=== PATIENT | female | born 1965 | race Two or more races ===

== ENCOUNTER 2017-07-18 21:08 | Observation (INO) | payer OTHER ==
[2017-07-18 21:14] VITALS: BMI 28.7
--- NOTE | 2017-07-18 21:24 | PDOC ---
History of Present Illness - General History Source: Patient Exam Limitations: No Limitations - General Chief Complaint: Chest Pain Stated Complaint: CHEST PAIN Time Seen by Provider: 07/18/17 21:15 - History of Present Illness Initial Comments: The patient is a 52 yr old female with a history hypothyroidism, hyperlipidemia , hypertension, CVA, DVT, fibroids, former smoker (quit after stroke) presents to the emergency department with chest pain since yesterday. Patient reports that her chest pain began last night and describes it as sharp, stabbing, intermittent (10x/minute). Today she state that she was driving when she felt pain in her chest, radiating to her left shoulder. She also reports feeling short of breath when the chest pain presents as well as feeling nauseous and hot. She states that she takes a Jerri aspirin daily. She had blood work done 1 week ago to test for MS. She denies diaphoresis, headache, or abdominal pain. She denies any fever, chills, focal weakness, numbness or tingling. FHx- Brother has MS. Father had heart disease and CVA. Social Hx: former smoker (cessation post stroke) ROS General: No fevers or chills, no weakness, no weight loss HEENT: No change in vision. No sore throat, No ear pain Cardiovascular: +chest pain, +shortness of breath secondary to pain Respiratory:No cough, or wheezing. Gastrointestinal: +nausea, no vomiting, diarrhea or constipation, No rectal bleeding Genitourinary: No dysuria, hematuria, or frequency Musculoskeletal: No joint or muscle pain or swelling Neurologic: No headache, vertigo, dizziness or loss of consciousness Psychiatric: No depression Skin: No rashes or easy bruising Endocrine: No increased thirst or abnormal weight change Allergic: No skin or latex allergy All other systems reviewed and normal PE General: Well-nourished well-developed individual, no acute distress HEENT: Throat: Normal, tonsils normal, no erythema or exudate Neck: Supple, no meningeal signs, no lymphadenopathy Eyes::Pupils equal reactive and round, extraocular motion intact Chest: Nontender to palpation Cardiac: S1-S2 normal, regular rate and rhythm, no murmurs rubs or gallops Respiratory: Lungs clear to auscultation bilateral Abdomen: Soft, nondistended, normal bowel sounds, nontender to palpation diffusely Extremities: Warm, dry, no cyanosis, clubbing, or edema Skin: No rashes Neuro: Alert and oriented x3, nonfocal exam, grossly intact, normal gait Psych: Normal mood and affect (Graciela Yoder) 07/18/17 21:31 A portion of this note was documented by scribe services under my direction. I have reviewed the details of the note, within reason, and agree with the documentation. The case summary and management plan written by me. Medical decision making: This is a 52-year-old female with multiple risk factors including hypertension, high cholesterol, CVA, history of smoking and family history of coronary artery disease who comes in complaining of substernal chest pain associated with radiation to her left axilla, shortness of breath, nausea times one day. Will obtain workup including CBC, comp, cardiac enzymes, d-dimer, EKG, chest x- ray We'll reassess and evaluate results of workup Differential diagnosis includes coronary artery disease, anterior chest wall pain, skeletal muscle type pain, PE 07/18/17 21:35 07/18/17 22:22 EKG shows normal sinus rhythm at a rate of [address]-T wave changes normal EKG. Chest x-ray shows no acute pathology Labs are normal including a non-measurable troponin D-dimer is still pending Patient will be admitted to an observation bed to rule her out as her heart scores for and she has multiple risk factors Patient is a patient of Dr. Vasquez, however I discussed with Dr. Vasquez who says he does not come to the [place] and the [facility] does his [place] admissions of his patient's. Signout given to the admitting hospitalist, who accepts the patient. Discussed plan with the patient family at bedside, Patient and family aware of the plan and agree. Patient is clinically unchanged and stable. (Janet Wallace I) Past History - Past Medical History Anemia: Yes CVA: Yes (CVA X 2 ()) COPD: No HTN: Yes Hypercholesterolemia: Yes Thyroid Disease: Yes (HYPO) - Surgical History Abdominal Surgery: Yes - Immunization History Immunization Up to Date: Yes - Suicide/Smoking/Psychosocial Hx Smoking History: Never smoked Have you smoked in the past 12 months: Yes Number of Cigarettes Smoked Daily: 20 'Breaking Loose' booklet given: 08/30/13 Hx Alcohol Use: No Drug/Substance Use Hx: No Substance Use Type: None - Past Medical History Allergies/Adverse Reactions: Allergies Allergy/AdvReac Type Severity Reaction Status Date / Time No Known Allergies Allergy Verified 03/03/15 23:22 Home Medications: Ambulatory Orders Amlodipine Besylate 5 mg PO DAILY 07/18/17 Review of Systems - Review of Systems Comments:: 07/18/17 21:40 see HPI (Graciela Yoder) *Physical Exam - Vital Signs Last Vital Signs Temp Pulse Resp BP Pulse Ox 98.5 F 85 16 139/83 96 07/18/17 23:38 07/19/17 01:24 07/19/17 01:24 07/19/17 01:24 07/19/17 01:24 - Physical Exam Comments: 07/18/17 21:40 see HPI (Graciela Yoder) Heart Score/ECG Review - History History: Moderately suspicious - Electrocardiogram EKG: Normal - Age Age: 45-65 - Risk Factors Risk Factors Heart Score: Yes Hx Hypercholesterolemia, Yes Hx Hypertension, Yes Smoking History, Yes Positive family hx of cardiac disease Based on the list above the patient has:: >/=3 risk factors or Hx atherosclerotic disease - Troponin Troponin: </= normal limit - Score Heart Score - Total: 4 ED Treatment Course - LABORATORY CBC & Chemistry Diagram: 07/18/17 21:35 07/18/17 21:35 - ADDITIONAL ORDERS Additional order review: Laboratory Results 07/19/17 07/18/17 07/18/17 00:55 21:50 21:35 D-Dimer 361 Sodium Potassium Chloride Carbon Dioxide Anion Gap BUN Creatinine Creat Clearance w eGFR Random Glucose Calcium Total Bilirubin AST ALT Alkaline Phosphatase Creatine Kinase Troponin I < 0.03 Total Protein Albumin Urine Color Yellow Urine Appearance Clear Urine pH 7.0 Ur Specific [place] 1.015 Urine Protein Negative Urine Glucose (UA) Negative Urine Ketones Negative Urine Blood 1+ H Urine Nitrite Negative Urine Bilirubin Negative Urine Urobilinogen 0.2 Ur Leukocyte Esterase Trace H Urine RBC 2-5 Urine WBC 2-5 Ur Epithelial Cells Few Urine Bacteria Few Urine HCG, Qual Negative 07/18/17 07/18/17 07/18/17 21:35 21:35 21:35 D-Dimer Sodium 138 Potassium 3.5 Chloride 105 Carbon Dioxide 26 Anion Gap 7 L BUN 12 Creatinine < 0.8 Creat Clearance w eGFR > 60 Random Glucose 115 H Calcium 9.4 Total Bilirubin 0.6 AST 20 ALT 25 Alkaline Phosphatase 104 H Creatine Kinase 137 Troponin I < 0.03 Total Protein 6.8 Albumin 3.8 Urine Color Urine Appearance Urine pH Ur Specific [place] Urine Protein Urine Glucose (UA) Urine Ketones Urine Blood Urine Nitrite Urine Bilirubin Urine Urobilinogen Ur Leukocyte Esterase Urine RBC Urine WBC Ur Epithelial Cells Urine Bacteria Urine HCG, Qual 07/18/17 21:35 RBC 5.04 MCV 82.1 MCHC 33.7 RDW 13.8 MPV 8.5 Neutrophils % 57.7 Lymphocytes % 30.6 Monocytes % 8.2 Eosinophils % 2.5 Basophils % 1.0 - RADIOLOGY Radiology Studies Ordered: Category Date Time Status CHEST X-RAY PORTABLE* [RAD] Stat Radiology 07/18/17 21:34 Taken *DC/Admit/Observation/Transfer - Discharge Dispostion Admit: Yes Diagnosis at time of Disposition: Chest pain Qualifiers: Chest pain type: unspecified Qualified Code(s): R07.9 - Chest pain, unspecified - Discharge Dispostion Condition at time of disposition: Stable Decision to Admit order Date/Time: Decision to Admit Order Category Date Time Status Decision to Admit to Hospital Routine Admission 07/18/17 22:28 Active - Attestations Scribe Attestion: 07/18/17 21:40 Documentation prepared by Graciela Yoder, acting as medical billing specialist for Janet Wallace MD. (Graciela Yoder)
[2017-07-18 21:50] LABS: EOS % 2.5 % (0-4.5); HEMATOCRIT 41.3 % (32.4-45.2); HEMOGLOBIN 13.9 GM/dl (10.7-15.3); LYMPH % 30.6 % (8-40); MCH 27.7 pg (25.7-33.7); MCHC 33.7 g/dl (32.0-36.0); MEAN CELL VOLUME 82.1 fl (80-96); MEAN PLT VOLUME 8.5 fl (7.5-11.1); MONO % 8.2 % (3.8-10.2); NEUT % 57.7 % (42.8-82.8); PLATELET COUNT 319 K/MM3 (134-434); RBC 5.04 M/mm3 (3.60-5.2); RDW 13.8 % (11.6-15.6); WHITE BLOOD COUNT 9.9 K/mm3 (4.0-10.8)
[2017-07-18 22:00] LABS: URINE APPEARANCE Clear; URINE BILIRUBIN Negative (NEGATIVE); URINE GLUCOSE (UA) Negative (NEGATIVE); URINE KETONE Negative (NEGATIVE); URINE NITRITE Negative (NEGATIVE); URINE PROTEIN Negative (NEGATIVE); URINE UROBILINOGEN 0.2 (0.2-1.0)
[2017-07-18 22:02] LABS: HCG,QUALITATIVE URINE NEGATIVE; URINE BLOOD 1+ (NEGATIVE); URINE COLOR YELLOW; URINE LEUK ESTERASE TRACE (NEGATIVE)
[2017-07-18 22:06] LABS: ALBUMIN 3.8 g/dl (3.5-5.0); ALK PHOS 104 U/L (32-92); ANION GAP 7 (8-16); BILIRUBIN,TOTAL 0.6 mg/dl (0.2-1.0); BLOOD UREA NITROGEN 12 mg/dl (7-18); CALCIUM 9.4 mg/dl (8.4-10.2); CHLORIDE 105 mmol/L (98-107); CO2 26 mmol/L (22-28); GLUCOSE,RANDOM 115 mg/dl (74-106); POTASSIUM 3.5 mmol/L (3.5-5.1); SGOT/AST 20 U/L (10-42); SGPT/ALT 25 U/L (10-40); SODIUM 138 mmol/L (136-145); TOT PROT 6.8 g/dl (6.4-8.3)
[2017-07-18 22:07] LABS: EPI CELLS FEW /HPF; URINE BACTERIA FEW /hpf (NEGATIVE)
[2017-07-18 22:22] LABS: CREATININE < 0.8 mg/dl (0.6-1.3)
--- NOTE | 2017-07-18 23:52 | HP ---
CHIEF COMPLAINT: Chest Pain, SOB PCP: Dr. Kendall Clarke HISTORY OF PRESENT ILLNESS: This is a 52 y/o woman with a PMH: Hypothyroidism, Hyperlipidemia, Hypertension , CVA, DVT, Fibroids, Former smoker (quit after stroke). Who presents to the ED with L- sided chest pain radiating to L- axilla, SOB. Patient describes the pain as stabbing occurred while shopping. Patient denies fever, chills, cough, MEDRANO, dizziness, palpitations, AP, N/V/D, constipation, dysuria. ER course was notable for: (1) Troponin I- < 0.03 (2) Chest Xray- No acute pathology (3) EKG- NSR, no ST or TWI Recent Travel: None PAST MEDICAL HISTORY: See HPI PAST SURGICAL HISTORY: Social History: Smoking: Former Alcohol: Occasional Drugs: Denies Lives with S.O., Independent Family History: Father: Heart Disease, CVA Brother: MS Allergies No Known Allergies Allergy (Verified 03/03/15 23:22) HOME MEDICATIONS: Home Medications (medications verified- [facility]) Medication Instructions Recorded Amlodipine Besylate 5 mg PO DAILY 07/18/17 Aspirin 81mg PO Daily MVI 1 Tab PO Daily Maxalt 10mg PO prn REVIEW OF SYSTEMS CONSTITUTIONAL: Absent: fever, chills, diaphoresis, generalized weakness, malaise, loss of appetite, weight change HEENT: Absent: rhinorrhea, nasal congestion, throat pain, throat swelling, difficulty swallowing, mouth swelling, ear pain, eye pain, visual changes CARDIOVASCULAR: chest pain Absent: syncope, palpitations, irregular heart rate, lightheadedness, peripheral edema RESPIRATORY: shortness of breath Absent: cough, dyspnea with exertion, orthopnea, wheezing, stridor, hemoptysis GASTROINTESTINAL: Absent: abdominal pain, abdominal distension, nausea, vomiting, diarrhea, constipation, melena, hematochezia GENITOURINARY: Absent: dysuria, frequency, urgency, hesitancy, hematuria, flank pain, genital pain MUSCULOSKELETAL: Absent: myalgia, arthralgia, joint swelling, back pain, neck pain SKIN: Absent: rash, itching, pallor HEMATOLOGIC/IMMUNOLOGIC: Absent: easy bleeding, easy bruising, lymphadenopathy, frequent infections ENDOCRINE: Absent: unexplained weight gain, unexplained weight loss, heat intolerance, cold intolerance NEUROLOGIC: Absent: headache, focal weakness or paresthesias, dizziness, unsteady gait, seizure, mental status changes, bladder or bowel incontinence PSYCHIATRIC: Absent: anxiety, depression, suicidal or homicidal ideation, hallucinations. PHYSICAL EXAMINATION Vital Signs - 24 hr 07/18/17 07/18/17 21:13 23:38 Temperature 98.9 F 98.5 F Pulse Rate 84 Pulse Rate [ 72 Apical] Respiratory 18 16 Rate Blood Pressure 156/102 Blood Pressure 115/61 [Arm] O2 Sat by Pulse 100 95 Oximetry (%) GENERAL: Awake, alert, and fully oriented, in no acute distress. HEAD: Normal with no signs of trauma. EYES: Pupils equal, round and reactive to light, extraocular movements intact, sclera anicteric, conjunctiva clear. No lid lag. EARS, NOSE, THROAT: Ears normal, nares patent, oropharynx clear without exudates. Moist mucous membranes. NECK: Normal range of motion, supple without lymphadenopathy, JVD, or masses. LUNGS: Breath sounds equal, clear to auscultation bilaterally. No wheezes, and no crackles. No accessory muscle use. HEART: Regular rate and rhythm, normal S1 and S2 without murmur, rub or gallop. CP non-reproducible ABDOMEN: Soft, nontender, not distended, normoactive bowel sounds, no guarding, no rebound, no masses. No hepatomegaly or splenomegaly. MUSCULOSKELETAL: Normal range of motion at all joints. No bony deformities or tenderness. No CVA tenderness. UPPER EXTREMITIES: 2+ pulses, warm, well-perfused. No cyanosis. No clubbing. No peripheral edema. LOWER EXTREMITIES: 2+ pulses, warm, well-perfused. No calf tenderness. No peripheral edema. NEUROLOGICAL: Cranial nerves II-XII intact. Normal speech. Gait not observed. PSYCHIATRIC: Cooperative. Good eye contact. Appropriate mood and affect. SKIN: Warm, dry, normal turgor, no rashes or lesions noted, normal capillary refill. Laboratory Results - last 24 hr 07/18/17 07/18/17 07/18/17 21:35 21:35 21:35 WBC 9.9 RBC 5.04 Hgb 13.9 Hct 41.3 MCV 82.1 MCH 27.7 MCHC 33.7 RDW 13.8 Plt Count 319 MPV 8.5 Neutrophils % 57.7 Lymphocytes % 30.6 Monocytes % 8.2 Eosinophils % 2.5 Basophils % 1.0 D-Dimer Sodium 138 Potassium 3.5 Chloride 105 Carbon Dioxide 26 Anion Gap 7 L BUN 12 Creatinine < 0.8 Creat Clearance w eGFR > 60 Random Glucose 115 H Calcium 9.4 Total Bilirubin 0.6 AST 20 ALT 25 Alkaline Phosphatase 104 H Creatine Kinase Troponin I < 0.03 Total Protein 6.8 Albumin 3.8 Urine Color Urine Appearance Urine pH Ur Specific [place] Urine Protein Urine Glucose (UA) Urine Ketones Urine Blood Urine Nitrite Urine Bilirubin Urine Urobilinogen Ur Leukocyte Esterase Urine RBC Urine WBC Ur Epithelial Cells Urine Bacteria Urine HCG, Qual 07/18/17 07/18/17 07/18/17 21:35 21:35 21:50 WBC RBC Hgb Hct MCV MCH MCHC RDW Plt Count MPV Neutrophils % Lymphocytes % Monocytes % Eosinophils % Basophils % D-Dimer 361 Sodium Potassium Chloride Carbon Dioxide Anion Gap BUN Creatinine Creat Clearance w eGFR Random Glucose Calcium Total Bilirubin AST ALT Alkaline Phosphatase Creatine Kinase 137 Troponin I Total Protein Albumin Urine Color Yellow Urine Appearance Clear Urine pH 7.0 Ur Specific [place] 1.015 Urine Protein Negative Urine Glucose (UA) Negative Urine Ketones Negative Urine Blood 1+ H Urine Nitrite Negative Urine Bilirubin Negative Urine Urobilinogen 0.2 Ur Leukocyte Esterase Trace H Urine RBC 2-5 Urine WBC 2-5 Ur Epithelial Cells Few Urine Bacteria Few Urine HCG, Qual Negative ASSESSMENT/PLAN: 52 y/o woman PMH: HTN, Hypothyroid, HLD, CVA, DVT, Former Smoker, Fibroids. Placed in Tele Observation for Chest Pain r/o ACS Problem List - Problem (1) Chest pain Assessment/Plan: - r/o ACS vs MS - HEART Score 4 - Continue cardiac monitoring - Serial Enzymes - Appreciate Cardiology Consult - Asa - EKG- NSR with no ST or TWI - Chest Xray- no infiltrate no effusion - Echo - Consider Stress Test - Lipid Panel in am - HgbA1C Code(s): R07.9 - CHEST PAIN, UNSPECIFIED Qualifiers: Chest pain type: unspecified Qualified Code(s): R07.9 - Chest pain, unspecified (2) HTN (hypertension) Assessment/Plan: -Stable - Monitor BP - Continue Norvasc - Monitor renal function Code(s): I10 - ESSENTIAL (PRIMARY) HYPERTENSION (3) HLD (hyperlipidemia) Assessment/Plan: - Lipid Panel in am - Will start Lipitor - Monitor LFTs Code(s): E78.5 - HYPERLIPIDEMIA, UNSPECIFIED (4) CVA (cerebral vascular accident) Assessment/Plan: - Stable - No residual - Continue Asa Code(s): I63.9 - CEREBRAL INFARCTION, UNSPECIFIED (5) Hypothyroid Assessment/Plan: - TSH in am - No current med Code(s): E03.9 - HYPOTHYROIDISM, UNSPECIFIED (6) History of DVT (deep vein thrombosis) Code(s): Z86.718 - PERSONAL HISTORY OF OTHER VENOUS THROMBOSIS AND EMBOLISM (7) DVT prophylaxis Assessment/Plan: - OOB - SCDs Code(s): VTD7413 - Visit type - Emergency Visit Emergency Visit: Yes ED Registration Date: 07/18/17 Care time: The patient presented to the Emergency Department on the above date and was hospitalized for further evaluation of their emergent condition. - New Patient This patient is new to me today: Yes Date on this admission: 07/18/17 - Critical Care Critical Care patient: No Hospitalist Screening - Colonoscopy Questionnaire Colonoscopy Questionnaire: Colonoscopy Questionnaire - Patient: 50 - 75 years old and never had a screening colonoscopy: No History of colon or rectal polyps, or CA: No History of IBD, Crohn's disease or UC: No History of abdominal radiation therapy as a child: No - Relative: 1 with colon or rectal CA, or polyps at age 60 or younger: No Colon or rectal CA diagnosed at age 45 or younger: No Multiple relatives with colon or rectal CA: No - Outcome: Screening Result: Negative Screen
[2017-07-19] MEDS ORDERED: diphenhydrAMINE HCL 50 MG CAPSULE PO ONE (02:44)
[2017-07-19] MEDS ORDERED: diphenhydrAMINE HCL 25 MG CAPSULE (FP) PO ONE (02:47)
[2017-07-19 08:24] VITALS: BP 124/75; PULSE 76; TEMP 97.6
[2017-07-19 08:47] LABS: BASO % 0.8 % (0-2.0); EOS % 2.5 % (0-4.5); HEMATOCRIT 39.8 % (32.4-45.2); HEMOGLOBIN 13.2 GM/dl (10.7-15.3); LYMPH % 27.6 % (8-40); MCH 27.4 pg (25.7-33.7); MCHC 33.1 g/dl (32.0-36.0); MEAN CELL VOLUME 82.7 fl (80-96); MEAN PLT VOLUME 9.1 fl (7.5-11.1); MONO % 9.8 % (3.8-10.2); NEUT % 59.3 % (42.8-82.8); PLATELET COUNT 318 K/MM3 (134-434); RBC 4.81 M/mm3 (3.60-5.2); RDW 13.6 % (11.6-15.6); WHITE BLOOD COUNT 7.6 K/mm3 (4.0-10.8)
--- NOTE | 2017-07-19 09:27 | DS ---
Physical Exam: SUBJECTIVE: Patient seen and examined in ED. Symptoms have resolved, no chest pain, no left axilla pain, no arm numbness. OBJECTIVE: Vital Signs Period Temp Pulse Resp BP Sys/[place] Pulse Ox Last 24 Hr 97.6 F-98.9 F 71-85 16-18 96-156/59-102 95-100 PHYSICAL EXAM GENERAL: The patient is awake, alert, and fully oriented, in no acute distress. HEAD: Normal with no signs of trauma. EYES: PERRL, extraocular movements intact, sclera anicteric, conjunctiva clear. ENT: Ears normal, nares patent, oropharynx clear without exudates, moist mucous membranes. NECK: Trachea midline, full range of motion, supple. LUNGS: Breath sounds equal, clear to auscultation bilaterally, no wheezes, no crackles, no accessory muscle use. HEART: Regular rate and rhythm, S1, S2 without murmur, rub or gallop. ABDOMEN: Soft, nontender, nondistended, normoactive bowel sounds, no guarding, no rebound, no hepatosplenomegaly, no masses. EXTREMITIES: 2+ pulses, warm, well-perfused, no edema. NEUROLOGICAL: Cranial nerves II through XII grossly intact. Normal speech, gait not observed. PSYCH: Normal mood, normal affect. SKIN: Warm, dry, normal turgor, no rashes or lesions noted. LABS Laboratory Results - last 24 hr 07/18/17 07/18/17 07/18/17 21:35 21:35 21:35 WBC 9.9 RBC 5.04 Hgb 13.9 Hct 41.3 MCV 82.1 MCH 27.7 MCHC 33.7 RDW 13.8 Plt Count 319 MPV 8.5 Neutrophils % 57.7 Lymphocytes % 30.6 Monocytes % 8.2 Eosinophils % 2.5 Basophils % 1.0 D-Dimer Sodium 138 Potassium 3.5 Chloride 105 Carbon Dioxide 26 Anion Gap 7 L BUN 12 Creatinine < 0.8 Creat Clearance w eGFR > 60 Random Glucose 115 H Calcium 9.4 Total Bilirubin 0.6 AST 20 ALT 25 Alkaline Phosphatase 104 H Creatine Kinase Troponin I < 0.03 Total Protein 6.8 Albumin 3.8 Triglycerides Cholesterol Total LDL Cholesterol HDL Cholesterol Urine Color Urine Appearance Urine pH Ur Specific [place] Urine Protein Urine Glucose (UA) Urine Ketones Urine Blood Urine Nitrite Urine Bilirubin Urine Urobilinogen Ur Leukocyte Esterase Urine RBC Urine WBC Ur Epithelial Cells Urine Bacteria Urine HCG, Qual 07/18/17 07/18/17 07/18/17 21:35 21:35 21:50 WBC RBC Hgb Hct MCV MCH MCHC RDW Plt Count MPV Neutrophils % Lymphocytes % Monocytes % Eosinophils % Basophils % D-Dimer 361 Sodium Potassium Chloride Carbon Dioxide Anion Gap BUN Creatinine Creat Clearance w eGFR Random Glucose Calcium Total Bilirubin AST ALT Alkaline Phosphatase Creatine Kinase 137 Troponin I Total Protein Albumin Triglycerides Cholesterol Total LDL Cholesterol HDL Cholesterol Urine Color Yellow Urine Appearance Clear Urine pH 7.0 Ur Specific [place] 1.015 Urine Protein Negative Urine Glucose (UA) Negative Urine Ketones Negative Urine Blood 1+ H Urine Nitrite Negative Urine Bilirubin Negative Urine Urobilinogen 0.2 Ur Leukocyte Esterase Trace H Urine RBC 2-5 Urine WBC 2-5 Ur Epithelial Cells Few Urine Bacteria Few Urine HCG, Qual Negative 07/19/17 07/19/17 07/19/17 00:55 06:35 06:35 WBC 7.6 RBC 4.81 Hgb 13.2 Hct 39.8 MCV 82.7 MCH 27.4 MCHC 33.1 RDW 13.6 Plt Count 318 MPV 9.1 Neutrophils % 59.3 Lymphocytes % 27.6 Monocytes % 9.8 Eosinophils % 2.5 Basophils % 0.8 D-Dimer Sodium Potassium Chloride Carbon Dioxide Anion Gap BUN Creatinine Creat Clearance w eGFR Random Glucose Calcium Total Bilirubin AST ALT Alkaline Phosphatase Creatine Kinase Troponin I < 0.03 Total Protein Albumin Triglycerides 109 Cholesterol 234 Total LDL Cholesterol 154 HDL Cholesterol 58 Urine Color Urine Appearance Urine pH Ur Specific [place] Urine Protein Urine Glucose (UA) Urine Ketones Urine Blood Urine Nitrite Urine Bilirubin Urine Urobilinogen Ur Leukocyte Esterase Urine RBC Urine WBC Ur Epithelial Cells Urine Bacteria Urine HCG, Qual HOSPITAL COURSE: Date of Admission:07/19/17 Date of AMA Departure: 07/19/17 52 year-old female with a PMH significant for HTN, HLD, CVA, DVT, hypothyroidism. Has been evaluated since 2013 for possible MS, no firm diagnosis ever given. Presented to ED with left-sided chest pain, described as below the left breast and radiating into the left axilla with associated numbness in left arm. Patient states the pain started the night before, lasted in total about 24 hours. No exacerbating or relieving factors. The pain waxed and waned and then went away on its own. There was some associated SOB. First two troponins are negative, third is pending. ECG not suggestive of ischemic event and telemetry unremarkable so far. Patient was encouraged to stay for a complete workup to rule out acute coronary syndrome. It was recommended she stay for the result of the third troponin, for an echocardiagram (last one 08/2013), for possible stress testing, for continuous telemetry monitoring, and to be seen and evaluated by a machine hoop maker helper. Patient declined. Patient advised of the risks of leaving the hospital including heart attack, stroke, . She acknowledged the risks. Discharge Summary Reason For Visit: CHEST PAIN Current Active Problems CVA (cerebral vascular accident) (Acute) Chest pain (Acute) DVT prophylaxis (Acute) HLD (hyperlipidemia) (Acute) HTN (hypertension) (Acute) History of DVT (deep vein thrombosis) (Acute) Hypothyroid (Acute) Condition: Stable - Instructions Referrals: Kendall Clarke MD [Primary Care Provider] - Disposition: AGAINST MEDICAL ADVICE - Home Medications Comprehensive Discharge Medication List: Ambulatory Orders Amlodipine Besylate 5 mg PO DAILY 07/18/17
[2017-07-19 09:46] LABS: ANION GAP 7 (8-16); BLOOD UREA NITROGEN 14 mg/dl (7-18); CALCIUM 8.9 mg/dl (8.4-10.2); CHLORIDE 106 mmol/L (98-107); CO2 24 mmol/L (22-28); GLUCOSE,RANDOM 101 mg/dl (74-106); PHOSPHOROUS 3.1 mg/dl (2.5-4.6); POTASSIUM 3.7 mmol/L (3.5-5.1); SODIUM 137 mmol/L (136-145)
[2017-07-19 10:00] LABS: CREATININE < 0.8 mg/dl (0.6-1.3)
[2017-07-19] MEDS ORDERED: ASPIRIN 81 MG CHEWABLE TABLETS PO SCH (10:00)
[2017-07-19] MEDS ORDERED: MULTIVITAMINS (DAILY MVI) TABLET (FP) PO SCH (10:00)
[2017-07-19] MEDS ORDERED: amLODIPine BESYLATE 5 MG TABLET (FP) PO SCH (10:00)
--- NOTE | 2017-07-19 11:34 | EKG ---
Test Reason : Blood Pressure : / mmHG Vent. Rate : 079 BPM Atrial Rate : 079 BPM P-R Int : 160 ms QRS Dur : 082 ms QT Int : 408 ms P-R-T Axes : 041 051 041 degrees QTc Int : 467 ms NORMAL SINUS RHYTHM NORMAL ECG WHEN COMPARED WITH ECG OF 30-AUG-2014 11:29, NONSPECIFIC T WAVE ABNORMALITY, IMPROVED IN ANTERIOR LEADS Confirmed by NIKI BROWN, ROCHELLE ([id number]) on 07/19/2017 11:34:21 AM Referred By: MD HUERTA Confirmed By:ROCHELLE PRINCE MD
[2017-07-19] MEDS ORDERED: ATORVASTATIN CA 10 MG TABLET (FP) PO SCH (22:00)
== END 2017-07-19 09:30 | disposition home or self-care (01) ==
LOC: SUPCPDRO 21:08 → FER 21:08 → FM/S 07-19 01:20
PROVIDERS: ADMIT Internal Medicine; ATTEND Nurse Practitioner Acute Care
DX: R07.9 Chest pain, unspecified (principal); I10 Essential (primary) hypertension; E78.5 Hyperlipidemia, unspecified; E03.9 Hypothyroidism, unspecified; D64.9 Anemia, unspecified; D25.9 Leiomyoma of uterus, unspecified; Z86.73 Personal history of transient ischemic attack (TIA), and cerebral infarction without residual deficits; Z86.718 Personal history of other venous thrombosis and embolism; Z87.891 Personal history of nicotine dependence
CPT/HCPCS: 36415; 71045-TC-FY; 80048; 80053; 80061; 81003; 81015; 82550; 83036; 83735; 84100; 84443; 84484; 84703; 85025; 85379; 93005; 99285-25; G0378

== ENCOUNTER 2018-07-21 17:21 | Emergency (ER) | payer OTHER ==
--- NOTE | 2018-07-21 17:39 | PDOC ---
Rapid Medical Evaluation Chief Complaint: Headache Time Seen by Provider: 07/21/18 17:35 Medical Evaluation: Allergies Allergy/AdvReac Type Severity Reaction Status Date / Time No Known Allergies Allergy Verified 03/03/15 23:22 07/21/18 17:36 I have performed a brief in person evaluation at triage on this patient. CC: MEDARNO HPI: Pt states she has a right sided MEDRANO x 3.5 hours with right sided facial paresthesia. Pt has a hx of migraines. 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 PE: Skin: clear Lungs: clear Heart: RRR MS: Moves all extremities without difficulty Neuro: Alert and oriented. No facial droop, no slurred speech, no protonator drift, 5/5 strength in UE and LE. Psych: Appropriate affect I have ordered basic labs. Pt will proceed to main ED for further evaluation. Discharge Disposition - Diagnosis Headache Qualifiers: Headache type: unspecified Headache chronicity pattern: acute headache - Referrals - Patient Instructions - Post Discharge Activity
[2018-07-21 17:40] VITALS: TEMP 98; BMI 28.3
[2018-07-21 18:11] LABS: BASO % 0.7 % (0-2.0); EOS % 1.2 % (0-4.5); HEMATOCRIT 39.9 % (32.4-45.2); HEMOGLOBIN 12.6 GM/dL (10.7-15.3); LYMPH % 15.3 % (8-40); MCH 23.3 pg (25.7-33.7); MCHC 31.6 g/dl (32.0-36.0); MEAN CELL VOLUME 73.7 fl (80-96); MEAN PLT VOLUME 9.1 fl (7.5-11.1); MONO % 4.9 % (3.8-10.2); NEUT % 77.9 % (42.8-82.8); PLATELET COUNT 281 K/MM3 (134-434); RBC 5.41 M/mm3 (3.60-5.2); RDW 22.7 % (11.6-15.6); WHITE BLOOD COUNT 12.3 K/mm3 (4.0-10.0)
[2018-07-21 18:55] LABS: ALK PHOS 169 U/L (45-117); ANION GAP 6 MMOL/L (8-16); BILIRUBIN,TOTAL 0.4 mg/dL (0.2-1); BLOOD UREA NITROGEN 9 mg/dL (7-18); CALCIUM 9.6 mg/dL (8.5-10.1); CHLORIDE 104 mmol/L (98-107); CO2 29 mmol/L (21-32); CREATININE 0.5 mg/dL (0.55-1.3); GLUCOSE,RANDOM 106 mg/dL (74-106); POTASSIUM 4.7 mmol/L (3.5-5.1); SGOT/AST 37 U/L (15-37); SGPT/ALT 42 U/L (13-61); SODIUM 139 mmol/L (136-145); TOT PROT 7.9 g/dl (6.4-8.2)
[2018-07-21] MEDS ORDERED: METOCLOPRAMIDE HCL INJECTION 10 MG/2 ML VIAL IVPUSH ONE (19:23)
[2018-07-21] MEDS ORDERED: KETOROLAC TROMETHAMINE 15 MG/ML VIAL IVPUSH ONE (19:23)
[2018-07-21] MEDS ORDERED: METOCLOPRAMIDE HCL INJECTION 10 MG/2 ML VIAL ONE ×2 (19:46→19:52)
[2018-07-21] MEDS ORDERED: KETOROLAC TROMETHAMINE 15 MG/ML VIAL ONE ×2 (19:47→19:53)
[2018-07-21 21:10] LABS: ANISOCYTOSIS 3+; MACROCYTOSIS 2+; OVALOCYTE 1+; PLATELET ESTIMATE ADEQUATE
--- NOTE | 2018-07-21 21:29 | PDOC ---
Documentation entered by Merry Hall SCRIBE, acting as scribe for Edith Nye MD. Edith Nye MD: This documentation has been prepared by the nehaibe, Merry Hall SCRIBE, under my direction and personally reviewed by me in its entirety. I confirm that the documentation accurately reflects all work, treatment, procedures, and medical decision making performed by me. History of Present Illness - General Chief Complaint: Headache Stated Complaint: HEADACHE Time Seen by Provider: 07/21/18 17:35 History Source: Patient Exam Limitations: No Limitations - History of Present Illness Initial Comments: 07/21/18 19:28 The patient is a 53 year old female with a significant past medical history of migraines who presents th the emergency department with a right sided headache since earlier today. The patient states that she was at home when she felt an onset of her headache. The patient states that she took 400mg advil at about 2pm with no apparent relief. She states seeing some associated color changes in her eyes and some nausea. The patient also reports that she feels some subjective numbness on her right side. She denies any blurry vision, vomiting, confusion or slurred speech. The patient denies any other complaints. NIH Stroke Scale - Last Known Well Date/Time & Onset Date Last Known Well: 07/21/18 Time Last Known Well: 21:28 - Initial Evaluation Level of consciousness: Alert Ask patient the month and their age: Answers both correctly Ask patient to open & close eyes; make fist and let go: Obeys both correctly Best gaze (horizontal eye movement): Normal Visual field testing: No visual field loss Facial paresis (Show teeth/raise eyebrows/close eyes tight): Normal symmetrical movement Motor Function: Left Arm: Normal Motor Function: Right Arm: Normal (extends arm 90 (or 45) degrees for 10 seconds without drift Motor Function: Left Leg: Normal (extends leg 30 degrees for 5 seconds without drift) Motor Function: Right Leg: Normal (extends leg 30 degrees for 5 seconds without drift) Limb Ataxia: No ataxia Sensory(Use pinprick test arms,legs,trunk,face/side to side): Normal Best language (Describe picture, name items, read sentences): No Aphasia Dysarthria (read several words): Normal articulation Extinction and Inattention: No abnormality - Total Score NIH Stroke Scale Score: 0 Past History - Past Medical History Allergies/Adverse Reactions: Allergies Allergy/AdvReac Type Severity Reaction Status Date / Time No Known Allergies Allergy Verified 07/21/18 17:38 Home Medications: Ambulatory Orders Amlodipine Besylate 5 mg PO DAILY 07/18/17 Ibuprofen [Motrin -] 600 mg PO TID PRN #21 tablet MDD 3 tabs 07/21/18 Anemia: Yes CVA: Yes (CVA X 2 ()) COPD: No HTN: Yes Hypercholesterolemia: Yes Thyroid Disease: Yes (HYPO) - Surgical History Abdominal Surgery: Yes - Immunization History Immunization Up to Date: Yes - Suicide/Smoking/Psychosocial Hx Smoking History: Never smoked Have you smoked in the past 12 months: Yes Number of Cigarettes Smoked Daily: 20 'Breaking Loose' booklet given: 08/30/13 Hx Alcohol Use: No Drug/Substance Use Hx: No Substance Use Type: None Review of Systems - Review of Systems Able to Perform ROS?: Yes Comments:: 07/21/18 19:29 CONSTITUTIONAL: Absent: fever, no chills, no fatigue EYES: Absent: visual changes ENT: Absent: ear pain, no sore throat CARDIOVASCULAR: Absent: chest pain, no palpitations RESPIRATORY: Absent: cough, no SOB GI: Absent: abdominal pain, no nausea, no vomiting, no constipation, no diarrhea GENITOURINARY: Absent: dysuria, no frequency, no hematuria MUSKULOSKELETAL: Absent: back pain, no arthralgia, no myalgia SKIN: Absent: rash NEURO:(+)right sided headache Absent: facial droop, motor strength 5/5 bilaterally *Physical Exam - Vital Signs Last Vital Signs Temp Pulse Resp BP Pulse Ox 98 F 77 18 164/89 98 07/21/18 17:38 07/21/18 17:38 07/21/18 17:38 07/21/18 17:38 07/21/18 17:38 - Physical Exam Comments: 07/21/18 19:29 GENERAL: Well-appearing, well-nourished. No apparent distress. HEENT: Normocephalic, atraumatic. PERRL, EOM intact. CARDIOVASCULAR: Normal S1, S2. Regular rate and rhythm. PULMONARY: Clear to auscultation bilaterally. ABDOMEN: Soft, non-distended, non-tender. EXTREMITIES: Normal ROM in all four extremities. No gross deformities. SKIN: Warm, dry. No rash NEUROLOGICAL: No focal neurological deficits. ED Treatment Course - LABORATORY CBC & Chemistry Diagram: 07/21/18 17:54 07/21/18 17:54 - ADDITIONAL ORDERS Additional order review: Laboratory Results 07/21/18 17:54 Sodium 139 Potassium 4.7 Chloride 104 Carbon Dioxide 29 Anion Gap 6 L BUN 9 Creatinine 0.5 L Creat Clearance w eGFR 130.08 Random Glucose 106 Calcium 9.6 Total Bilirubin 0.4 AST 37 ALT 42 Alkaline Phosphatase 169 H Total Protein 7.9 Albumin 4.0 07/21/18 17:54 RBC 5.41 H MCV 73.7 L MCHC 31.6 L RDW 22.7 H MPV 9.1 Neutrophils % 77.9 Lymphocytes % 15.3 D Monocytes % 4.9 Eosinophils % 1.2 Basophils % 0.7 - Medications Given in the ED: ED Medications Discontinued Medications Generic Name Dose Route Start Last Admin Trade Name Freq PRN Reason Stop Dose Admin Diphenhydramine HCl 25 mg 07/21/18 19:23 07/21/18 20:05 Benadryl Injection - IVPUSH 07/21/18 19:24 25 mg ONCE ONE Administration Ketorolac Tromethamine 15 mg 07/21/18 19:23 07/21/18 20:05 Toradol Injection - IVPUSH 07/21/18 19:24 15 mg ONCE ONE Administration Metoclopramide HCl 10 mg 07/21/18 19:23 07/21/18 20:05 Reglan Injection - IVPUSH 07/21/18 19:24 10 mg ONCE ONE Administration *DC/Admit/Observation/Transfer Diagnosis at time of Disposition: Headache Qualifiers: Headache type: unspecified Headache chronicity pattern: unspecified pattern Intractability: not intractable Qualified Code(s): R51 - Headache - Discharge Dispostion Disposition: HOME Condition at time of disposition: Stable - Prescriptions Prescriptions: Ibuprofen [Motrin -] 600 mg PO TID PRN #21 tablet MDD 3 tabs PRN Reason: Headache - Referrals Referrals: Kendall Clarke MD [Primary Care Provider] - Liz Clement MD [Staff Physician] - - Patient Instructions Printed Discharge Instructions: DI for Migraine Additional Instructions: please follow up with Dr Clement - Post Discharge Activity
[2018-07-21 21:39] VITALS: BP 131/79; PULSE 85
== END 2018-07-21 21:33 | disposition home or self-care (01) ==
LOC: JER 17:21
DX: R51 Headache (principal); I10 Essential (primary) hypertension; E78.00 Pure hypercholesterolemia, unspecified; E03.9 Hypothyroidism, unspecified; Z86.73 Personal history of transient ischemic attack (TIA), and cerebral infarction without residual deficits
CPT/HCPCS: 36415; 80053; 85025; 99282-25

== ENCOUNTER 2019-02-26 18:54 | Emergency (ER) | payer OTHER ==
[2019-02-26 19:00] VITALS: BP 170/84; PULSE 100; TEMP 98; BMI 33.6
[2019-02-26] MEDS ORDERED: KETOROLAC TROMETHAMINE 60 MG/2 ML VIAL IM ONE (19:45)
[2019-02-26] MEDS ORDERED: DIPHTH,PERTUSS(ACELL),TET 0.5 ML DISP.SYRIN IM ONE ×2 (19:45→20:01)
[2019-02-26] MEDS ORDERED: LIDOCAINE 2.5%/PRILOCAINE 2.5% (5 Gram/TUBE) TP ONE (19:48)
[2019-02-26] MEDS ORDERED: IBUPROFEN 400 MG TABLET (FP) PO ONE (19:59)
--- NOTE | 2019-02-26 21:08 | PDOC ---
History of Present Illness - General Chief Complaint: Laceration Stated Complaint: LACERATION Time Seen by Provider: 02/26/19 19:01 History Source: Patient Exam Limitations: No Limitations Past History - Travel Traveled outside of the country in the last 30 days: No Close contact w/someone who was outside of country & ill: No - Past Medical History Allergies/Adverse Reactions: Allergies Allergy/AdvReac Type Severity Reaction Status Date / Time No Known Allergies Allergy Verified 02/26/19 19:00 Home Medications: Ambulatory Orders Amlodipine Besylate 5 mg PO DAILY 07/18/17 Ibuprofen [Motrin -] 600 mg PO TID PRN #21 tablet MDD 3 tabs 07/21/18 Anemia: Yes CVA: Yes (CVA X 2 ()) COPD: No HTN: Yes Hypercholesterolemia: Yes Thyroid Disease: Yes (HYPO) - Surgical History Abdominal Surgery: Yes - Immunization History Immunization Up to Date: Yes - Psycho Social/Smoking Cessation Hx Smoking History: Never smoked Have you smoked in the past 12 months: Yes Number of Cigarettes Smoked Daily: 20 'Breaking Loose' booklet given: 08/30/13 Hx Alcohol Use: No Drug/Substance Use Hx: No Substance Use Type: None Review of Systems - Review of Systems Able to Perform ROS?: Yes Comments:: 02/26/19 22:50 CONSTITUTIONAL: Absent: fever, chills, diaphoresis, generalized weakness, malaise, loss of appetite HEENT: Absent: rhinorrhea, nasal congestion, throat pain, throat swelling, difficulty swallowing, mouth swelling, ear pain, eye pain, visual Changes MUSCULOSKELETAL: Absent: myalgia, arthralgia, joint swelling SKIN: Present: Laceration to right hand. Absent: rash, itching, pallor NEUROLOGIC: Absent: headache, focal weakness or paresthesias, dizziness, unsteady gait, seizure, mental status changes, bladder or bowel incontinence PSYCHIATRIC: Absent: anxiety, depression, suicidal or homicidal ideation, hallucinations. Is the patient limited Green[place]ic proficient: No *Physical Exam - Vital Signs Last Vital Signs Temp Pulse Resp BP Pulse Ox 98 F 100 H 18 170/84 99 02/26/19 18:56 02/26/19 18:56 02/26/19 18:56 02/26/19 18:56 02/26/19 18:56 - Physical Exam 02/26/19 22:51 GENERAL: The patient is awake, alert, and fully oriented, in no acute distress. HEAD: Normal with no signs of trauma. EYES: Pupils equal, round and reactive to light, extraocular movements intact, sclera anicteric, conjunctiva clear. EXTREMITIES: Normal range of motion, no edema. NEUROLOGICAL: Normal speech, normal gait. PSYCH: Normal mood, normal affect. SKIN: Laceration present to the right thenar eminence measuring approximately 2 cm. Linear laceration. Patient able to fully flex and extend the thenar eminence without pain. Mild swelling noted. Warm, Dry, normal turgor, no rashes or lesions noted. Procedures - Laceration/Wound Repair Right Volar Hand Wound Length: to 2.5 cm Wound Explored: clean, no foreign body present Wound's Depth, Shape: superficial, linear Irrigated w/ Saline: Yes Betadine Prep: Yes Anesthesia: 1% Lidocaine Amount of Anesthetic (ccs): 4 Wound Repaired With: Sutures Suture Size/Type: 4:0 Number of Sutures: 5 (Simple interrupted) Layer Closure: No Sterile Dressing Applied: Yes ED Treatment Course - Medications Given in the ED: ED Medications Discontinued Medications Generic Name Dose Route Start Last Admin Trade Name Freq PRN Reason Stop Dose Admin Diphtheria/Tetanus/Acell Pertussis 0.5 ml 02/26/19 19:45 02/26/19 20:04 Boostrix - IM 02/26/19 19:46 0.5 ml .ONCE ONE Administration Ketorolac Tromethamine 60 mg 02/26/19 19:45 02/26/19 20:48 Toradol Injection - IM 02/26/19 19:46 Not Given ONCE ONE Lidocaine/Prilocaine 1 applic 02/26/19 19:48 02/26/19 19:57 Emla - TP 02/26/19 19:49 1 applic ONCE ONE Administration Medical Decision Making - Medical Decision Making 02/26/19 22:52 Patient is a 53-year-old female who presents the ER for evaluation of a laceration to her right hand that occurred this evening. She states that she was walking her dog when the leash got caught in her apartment elevator. She states that the dog was starting to be strangled by the collar as the elevator moved so she rushed to get the dog's collar unclipped from the leash. When she unclipped the leash, the middle part cut her right thenar eminence. She does not member the date of her last tetanus shot. A/P: Laceration to right hand On exam patient with a 2 cm laceration to her right thenar eminence with mild associated swelling. Patient is full range of motion of the thumb. Bleeding controlled prior to arrival Wound was explored and flushed with 30 cc of normal saline. No foreign bodies noted. Laceration did not extend into the muscle. 5 simple interrupted sutures placed Patient told to return in 2 days for wound check Discharge home with wound care instructions and return precautions I discussed the physical exam findings, ancillary test results and final diagnoses with the patient. I answered all of the patient's questions. The patient was satisfied with the care received and felt comfortable with the discharge plan and treatment plan. The Patient agrees to follow up with the primary care physician/specialist within 24-72 hours. Return precautions were given. Discharge - Discharge Information Problems reviewed: Yes Clinical Impression/Diagnosis: Laceration Condition: Stable Disposition: HOME - Admission No - Follow up/Referral Referrals: Kendall Clarke MD [Primary Care Provider] - - Patient Discharge Instructions Patient Printed Discharge Instructions: DI for Laceration Repair Additional Instructions: You had your cut fixed today with stitches. Please return in 2 days for a wound check Please return in 7-10 days to have your stitches removed. Keep the wound clean and dry for 24 hours Your tetanus shot was updated today. Avoid soaking the hand. Keep it dry when showering. Please keep the area clean and pat dry. You may use bacitracin once a day. You may take Tylenol or Motrin as needed for pain. Return to the emergency department sooner if you have area of redness around the site, purulent drainage, fevers, or have any changes in your symptoms. - Post Discharge Activity Work/Back to School Note: Back to Work
== END 2019-02-26 21:12 | disposition home or self-care (01) ==
LOC: JERFT 18:54
PROC: 3E0234Z Introduction of Serum, Toxoid and Vaccine into Muscle, Percutaneous Approach (ICD-10-PCS; principal; 2019-02-26)
PROC: 0HQFXZZ Repair Right Hand Skin, External Approach (ICD-10-PCS; 2019-02-26)
DX: S61.411A Laceration without foreign body of right hand, initial encounter (principal); W26.8XXA Contact with other sharp object(s), not elsewhere classified, initial encounter; Y93.K9 Activity, other involving animal care; Y92.038 Other place in apartment as the place of occurrence of the external cause; Y99.8 Other external cause status
CPT/HCPCS: 12001-25; 90471; 90715; 99284-25

== ENCOUNTER 2023-05-27 16:37 | Emergency (ER) | payer OTHER ==
[2023-05-27 16:54] VITALS: RESP 18; BMI 31.3
[2023-05-27 18:38] LABS: EOS % 1.6 % (0-4.5); HEMATOCRIT 42.2 % (32.4-45.2); HEMOGLOBIN 14.4 GM/dL (10.7-15.3); LYMPH % 21.2 % (8-40); MCH 28.9 pg (25.7-33.7); MCHC 34.1 g/dl (32.0-36.0); MEAN CELL VOLUME 84.6 fl (80-96); MEAN PLT VOLUME 8.9 fl (7.5-11.1); MONO % 7.5 % (3.8-10.2); NEUT % 68.7 % (42.8-82.8); PLATELET COUNT 262 10^3/uL (134-434); RBC 4.98 M/mm3 (3.60-5.2); RDW 13.5 % (11.6-15.6); WHITE BLOOD COUNT 10.6 K/mm3 (4.0-10.0)
[2023-05-27 18:42] LABS: EPI CELLS 5 /uL (0-25.1); HYALINE CASTS 0 /uL (0-3.1); URINE APPEARANCE CLEAR; URINE BACTERIA 6 /uL (0-1359); URINE BILIRUBIN NEGATIVE (NEGATIVE); URINE COLOR YELLOW; URINE GLUCOSE (UA) NEGATIVE (NEGATIVE); URINE KETONE NEGATIVE (NEGATIVE); URINE LEUK ESTERASE NEGATIVE (NEGATIVE); URINE NITRITE NEGATIVE (NEGATIVE); URINE PROTEIN NEGATIVE (NEGATIVE); URINE RBC 30 /uL (0-23.9); URINE UROBILINOGEN 0.2 mg/dL (0.2-1.0); URINE WBC 8 /uL (0-25.8)
[2023-05-27 19:04] LABS: POTASSIUM 3.8 mmol/L (3.5-5.1)
[2023-05-27 19:05] LABS: CALCIUM 9.1 mg/dL (8.5-10.1)
[2023-05-27 19:06] LABS: ALBUMIN 4.1 g/dl (3.4-5.0); BLOOD UREA NITROGEN 14.2 mg/dL (7-18)
[2023-05-27 19:09] LABS: CREATININE 0.5 mg/dL (0.55-1.3)
[2023-05-27 19:10] LABS: BILIRUBIN,TOTAL 0.4 mg/dL (0.2-1)
[2023-05-27 19:11] LABS: TOT PROT 7.6 g/dl (6.4-8.2)
[2023-05-27 20:07] VITALS: BP 131/68; PULSE 72; TEMP 97.7
== END 2023-05-27 21:44 | disposition home or self-care (01) ==
LOC: JER 16:37
DX: R10.31 Right lower quadrant pain (principal); R10.32 Left lower quadrant pain; N93.9 Abnormal uterine and vaginal bleeding, unspecified
CPT/HCPCS: 36415; 76830-TC; 80053; 81003; 82272; 85025; 87077; 87086; 99284-25

== ENCOUNTER 2023-06-24 03:44 | Day surgery (SDC) | payer OTHER ==
[2023-06-19 11:25] VITALS: BMI 32.3
[2023-06-24] MEDS ORDERED: KETOROLAC TROMETHAMINE 30 MG/1 ML VIAL ONE ×2 (08:11→09:09)
[2023-06-24] MEDS ORDERED: PROPOFOL 20 ML ONE ×2 (08:11→08:38)
[2023-06-24] MEDS ORDERED: DEXAMETHASONE SOD PHOSPHATE 4 MG/1 ML VIAL ONE ×2 (08:11→09:09)
[2023-06-24] MEDS ORDERED: ONDANSETRON 4 MG/2 ML VIAL ONE ×3 (08:11→11:14)
[2023-06-24] MEDS ORDERED: MIDAZOLAM HCL 2 MG/2 ML SINGLE DOSE VIAL ONE ×3 (08:13→08:38)
[2023-06-24] MEDS ORDERED: FENTANYL CITRATE/PF 50 MCG/ML VIAL ONE ×5 (08:13→10:15)
[2023-06-24] MEDS: ceFAZolin SODIUM 1 GM VIAL IVPB ONE (09:01)
[2023-06-24] MEDS ORDERED: ceFAZolin SODIUM 1 GM VIAL ONE (09:09)
[2023-06-24] MEDS: SILVER NITRATE 75% APPLIC STCK 1 PKT EACH NR ONE (09:23)
[2023-06-24] MEDS ORDERED: IBUPROFEN 600 MG TABLET (FP) PO PRN (09:38)
[2023-06-24] MEDS ORDERED: IBUPROFEN 800 MG/8 ML IJ IVPB PRN (09:38)
[2023-06-24] MEDS ORDERED: oxyCODONE HCL 5 MG TABLET PO PRN ×2 (09:38→09:44)
[2023-06-24] MEDS ORDERED: ONDANSETRON 4 MG/2 ML VIAL IVPUSH PRN (09:44)
[2023-06-24] MEDS: ACETAMINOPHEN 1000 MG/100 ML BAG IVPB ONE (09:45)
[2023-06-24] MEDS: ACETAMINOPHEN INJECTION 100 ML IVPB ONE (09:45)
[2023-06-24] MEDS ORDERED: LACTATED RINGERS SOLUTION 1,000 ML IV SCH (09:45)
[2023-06-24] MEDS ORDERED: ELECTROLYTE-148 SOLN 1,000 ML IV SCH (09:45)
[2023-06-24] MEDS: FENTANYL CITRATE/PF 50 MCG/ML VIAL IVPUSH PRN (10:15)
[2023-06-24] MEDS: ONDANSETRON 4 MG/2 ML VIAL IVPUSH PRN (11:15)
[2023-06-24 11:37] VITALS: RESP 20; TEMP 97.7
[2023-06-24 12:50] VITALS: BP 110/67; PULSE 62
== END 2023-06-24 12:44 | disposition home or self-care (01) ==
LOC: JASU-SURG 03:44
PROVIDERS: ATTEND Obstetrics & Gynecology
PROC: 0UB98ZZ Excision of Uterus, Via Natural or Artificial Opening Endoscopic (ICD-10-PCS; principal; 2023-06-24 08:30)
DX: N95.0 Postmenopausal bleeding (principal); D25.0 Submucous leiomyoma of uterus
CPT/HCPCS: 88305-TC; 88341-TC; 88342-TC; 94760; J0131

== ENCOUNTER → 2024-02-16 | Day surgery (SDC) | payer OTHER | END | disposition home or self-care (01) | LOC: JRADIR 11:18 | PROVIDERS: ATTEND Internal Medicine | PROC: 0G9G3ZX Drainage of Left Thyroid Gland Lobe, Percutaneous Approach, Diagnostic (ICD-10-PCS; principal; 2024-02-16) | DX: E04.1 Nontoxic single thyroid nodule (principal) | CPT/HCPCS: 10005; 76942; 88173; 88305-TC ==

== ENCOUNTER 2024-02-26 05:11 | Day surgery (SDC) | payer OTHER ==
[2024-02-23 12:25] VITALS: BMI 29.9
[2024-02-26 11:53] VITALS: TEMP 97.5
[2024-02-26 12:44] VITALS: PULSE 66
[2024-02-26 12:45] VITALS: BP 107/69; RESP 18
== END 2024-02-26 12:35 | disposition home or self-care (01) ==
LOC: JASU-ENDO 05:11
PROVIDERS: ATTEND Internal Medicine Gastroenterology
PROC: 0DB58ZX Excision of Esophagus, Via Natural or Artificial Opening Endoscopic, Diagnostic (ICD-10-PCS; 2024-02-26)
PROC: 0DB78ZX Excision of Stomach, Pylorus, Via Natural or Artificial Opening Endoscopic, Diagnostic (ICD-10-PCS; 2024-02-26)
PROC: 0DB68ZX Excision of Stomach, Via Natural or Artificial Opening Endoscopic, Diagnostic (ICD-10-PCS; 2024-02-26)
PROC: 0DJD8ZZ Inspection of Lower Intestinal Tract, Via Natural or Artificial Opening Endoscopic (ICD-10-PCS; principal; 2024-02-26 10:00)
DX: Z12.11 Encounter for screening for malignant neoplasm of colon (principal); K29.50 Unspecified chronic gastritis without bleeding; B96.81 Helicobacter pylori [H. pylori] as the cause of diseases classified elsewhere; K31.A12 Gastric intestinal metaplasia without dysplasia, involving the body (corpus); K21.00 Gastro-esophageal reflux disease with esophagitis, without bleeding
CPT/HCPCS: 43239; G0121; 88305-TC; 88341-TC; 88342-TC